=== PATIENT | female | born 1970 | race Caucasian/White ===

== ENCOUNTER 2018-08-22 10:47 | Observation (INO) ==
[~2018-08-22 10:47] MED LIST: LIDOCAINE W/ SODIUM BICARB 0.5 ML SYR ONE; LIDOCAINE W/ SODIUM BICARB 0.5 ML SYR SUBD ONE; Lactated Ringers 1,000 ML PRIMARY IV ONE; Nasal Sanitizer POPSWAB ampule 3 AMP (Nozin) PREOP DOSE ENOS SCH; Sodium Chloride 0.9% 250 ML ONE; Vancomycin Inj 1gm vial ONE; ceFAZolin Inj 2gm (Premix) 2 GM/50 ML BAG IV ONE
[2018-08-22 11:46] LABS: URINE SPECIFIC GRAVITY - MAN 1.045
[2018-08-22] MEDS ORDERED: HYDROmorphone 2 MG/1 ML ONE ×2 (13:30→16:48)
[2018-08-22] MEDS: HYDROmorphone 2 MG/1 ML IVP PRN ×2 (13:34→13:51)
[2018-08-22] MEDS ORDERED: ONDANSETRON 4 MG/2 ML VIAL IVP ONE (13:34)
[2018-08-22] MEDS ORDERED: REMIFENTANIL HCL 2 MG VIAL IV ONE (13:36)
[2018-08-22] MEDS ORDERED: fentaNYL Inj 100 MCG/2 ML VIAL ONE (13:37)
[2018-08-22] MEDS ORDERED: MIDAZOLAM HCL 2 MG/2 ML VIAL ONE (13:37)
[2018-08-22] MEDS ORDERED: Propofol 1,000 MG/100 ML VIAL IV ONE ×2 (13:37→16:25)
[2018-08-22] MEDS ORDERED: ONDANSETRON 4 MG/2 ML VIAL ONE ×3 (13:44→18:33)
[2018-08-22] MEDS ORDERED: Sodium Chloride 0.9% vial 10 ML ONE ×4 (14:28→19:37)
[2018-08-22] MEDS ORDERED: BACITRACIN 50,000 UNIT VIAL IRRIG ONE ×3 (14:29→17:27)
[2018-08-22] MEDS ORDERED: BUPIVACAINE 0.25% W/ EPI - 10 ML VIAL ONE ×2 (14:36→15:11)
[2018-08-22] MEDS ORDERED: KETAMINE HCL 100 MG/2 ML SYRINGE IV ONE (15:20)
[2018-08-22] MEDS ORDERED: Lactated Ringers 1,000 ML PRIMARY IV ONE (15:42)
[2018-08-22] MEDS ORDERED: REMIFENTANIL 1 MG/1 ML IV ONE (16:57)
[2018-08-22] MEDS ORDERED: BUPivacaine Liposome/PF (Exparel) Inj 20ml vial INFIL ONE (17:12)
[2018-08-22] MEDS ORDERED: BUPivacaine Inj 0.25% PF - 10ml vial ONE (17:14)
[2018-08-22] MEDS ORDERED: PROPOFOL 10 MG/1 ML (200 MG/20 ML) VIAL IV ONE (18:06)
[2018-08-22] MEDS ORDERED: KETOROLAC 30 MG/1 ML VIAL ONE (18:14)
[2018-08-22] MEDS ORDERED: NALOXONE 0.4 MG/1 ML VIAL ONE ×2 (18:28→19:37)
[2018-08-22] MEDS ORDERED: PROMETHAZINE 25 MG/1 ML VIAL IM ONE (18:42)
[2018-08-22] MEDS ORDERED: HYDROmorphone 2 MG/1 ML IVP PRN ×2 (18:52→20:18)
[2018-08-22] MEDS ORDERED: LIDOCAINE W/ SODIUM BICARB 0.5 ML SYR SUBD PRN (18:52)
[2018-08-22] MEDS ORDERED: PROMETHAZINE 25 MG/1 ML VIAL IM PRN ×2 (18:52→20:18)
[2018-08-22] MEDS ORDERED: fentaNYL Inj 100 MCG/2 ML VIAL IVP PRN (18:52)
--- NOTE | 2018-08-22 18:54 | CRNA.PROGR ---
Anesthesia Recovery Phase I - Post Anesthesia Evaluation Patient's Condition on Arrival in Phase I: Stable Pain Level: 0
--- NOTE | 2018-08-22 18:54 | CRNA.PROGR ---
Anesthesia Time - Procedure/Recovery Time Start Date: 08/22/18 End Date: 08/22/18 Anesthesia : Time In: 14:48 Anesthesia : Time Out: 18:35 Anesthesia : Total Time: 227 - Total Anesthesia Time Total Anesthesia Time (minutes): 227 - Other Weight: 95.254 kg Height: 5 ft 3 in Body Mass Index (BMI): 37.2 Physical Status: P2 Anesthesia Type: General Anesthesia : ET
[2018-08-22] MEDS ORDERED: Lactated Ringers 1,000 ML PRIMARY IV SCH (19:00)
--- NOTE | 2018-08-22 19:47 | GEN.OPNOTE ---
Operative Note Surgery Date: 08/22/18 Preoperative Diagnosis: 1. Chronic neck pain. 2. Intrascapular/mid back pain. 3. Status post remote work related injury and subsequent multiple anterior and posterior cervical fusion and hardware removal procedures. 4. Positive response to a cervical/scapular region peripheral stimulator trial. Postoperative Diagnosis: 1. Chronic neck pain. 2. Intrascapular/mid back pain. 3. Status post remote work related injury and subsequent multiple anteri or and posterior cervical fusion and hardware removal procedures. 4. Positive response to a cervical/scapular region peripheral stimulator trial. Procedure: 1.) Implantation of two Abbot/ St. Jass Octrode neurostimulator electrode arrays bilaterally; neuromuscular (right scapular region and right upper mid back region stimulator electrodes and left scapular region and left upper mid back region electrode arrays). (CPT code: 67257-44). 2.) Inplantation/insertion of two Werner/St. Jass Proclaim 7 Elite impulse generatery/battery units in the buttocks (right and left). (CPT code: 28810- 50) Surgeon: Zan Salcedo MD Attendant Campground: MISTY Szymanski Anesthesia Provider: Neil Mills CRNA Anesthesia Type: General Estimated Blood Loss (mL): 20 Fluids: See anesthesia record Pathology: None Indications: Ms. Torres is a 48 year old female status post a work related injury and status post multiple anterior cervical discectomy and fusion procedures and extensive posterior cervical thoracic instrumented fusion with subsequent removal of her cervical thoracic hardware. She has had persistent chronic neck pain and intrascapular pain for many years. More recently she has had mid back pain. She underwent a successful subcutaneous peripheral cervical/intrascapular/scapular stimulator trial. She wished to proceed with placement a permanent peripheral stimulator system and presents for that procedure today. Findings: None Complications: None Operative Summary: Ms. Torres was brought back to the Operating Room Suite. Her surgical history and physical in her chart was reviewed. The procedure to be performed was confirmed with Ms. Torres and we were in agreement on the procedure to be performed and this match was written on the patients consent form. Any questions that Ms. Torres had or family or friends with her had were answered before she was taken back to the Operating Room Suite. Ms. Torres was brought back to the Operating Room Suite and put under general anesthesia and intubated the anesthesia staff. She had a Patton catheter placed in her bladder for the procedure. She had pneumatic compression hose placed on her lower legs bilaterally. She was carefully rolled over onto the Paco surgical table with her arms gently positioned upwards with her shoulders abducted less than 90 degrees. Her arms were well padded, well-formed padding on top of the padding with surgical arm boards. The region of her chest and axilla was checked bilaterally to make sure that there were no pressure points over the region of the brachial plexus. Her breasts were checked to be below the chest pad of the Paco table with no pressure points over the nipples. All bony prominences were well padded. Her Patton catheter as checked to be free from kinks. Pneumatic compression hose was attached to pneumatic compression device. The intended incisions were demarcated for the insertion of the peripheral stimulator electrode arrays in the scapular and mid-back region and the intended IPG/battery sites in the bilateral buttocks were demarcated with a skin marker as well. Ms. Torres was prepped and draped in the usual and standard fashion. She was given 2 grams of Ancef and 1 gram of vancomycin IV for perioperative antibiosis. All intended skin incisions were injected with -percent Marcaine with 1:200,000 epinephrine. The interscapular incisions were opened with a 10-blade scalpel with all dermal and superficial bleeding points coagulated with bipolar cautery. The Tuohy needles for placement of this stimulator electrodes were then bent into a slight curvature and they were placed directed laterally into the subcutaneous tissue trying to keep the leads just below the level of the dermis. Once all four Tuohy needles were in place, the Werner/St. Jass Octorode stimulator lead electrode arrays were placed through the Tuohy needles just past the distal end of each needle, which was determinable by change in the resistance of the passage of the needle and by feeling the lead come out of the end of the Tuohy needle underneath the skin. The leads were placed such that the upper leads were somewhat higher than her trial leads had been placed as desired and then the lower leads were placed such to cover her upper mid-back pain. AP fluoroscopic images were obtained demonstrating the position of all four of the peripheral lead electrode arrays.. The Tuohy needles were then all withdrawn with care not to move the peripheral neuromuscular electrode arrays. Repeat AP fluoroscopic images demonstrated that the position of the electrode arrays had not moved. The leads were then all connected to a device connecting them to an external battery such that they could be interrogated and all individual electrodes of the lead electrode arrays demonstrated to have the proper impedance. The anchors were then advanced over each of the leads with care not to move the leads and then the anchors were secured to the deeper subcutaneous tissue and then collected and locked into position securing the leads. The leads were then examined again with AP fluoroscopic imaging again demonstrating that they had not moved. The bilateral buttocks incisions were then opened with a 10-blade scalpel, with the dermal and superficial bleeding points being controlled with bipolar cautery. The pockets were then made mostly caudal but also slightly rostral to the incisions in both a blunt and sharp fashion. The depth of the stimulator pockets was made at approximately 1 cm. The appropriate size of the battery pockets was confirmed with a trial battery. The battery sites were then copiously irrigated with bacitracin irrigation. The subcutaneous tunneler was then passed bilaterally creating two subcutaneous tracts from the thoracic incisions on each side where the leads have been placed down to the impulse gen erator/battery pockets. The leads were then passed through the subcutaneous channel to the battery pockets and then the leads were then placed into the impulse generator/battery devices and interrogated again. The leads were then secured within the impulse generator/battery devices with a small special screwdriver with a gentle tug in each lead assuring that the leads were snugly attached in each device. A small stress-relieving loop was made in the upper part of the leads and placed into the thoracic dissection sites with some of the subcutaneous tissue at these sites had been previously dissected to allow for the placement of a stress- relieving loop and this was done prior to the placement of the Tuohy needles of the subcutaneous tissue. The stress-relieving loops were placed into the thoracic incisions. The thoracic incisions were copiously irrigated with bacitracin irrigation. Both incisions were then closed in layers with Vicryl suture. The deep subcutaneous tissue was closed with 2-0 Vicryl suture in an interrupted fashion. The dermis superficial subcutaneous tissue was re- approximated with 3-0 Vicryl suture in an interrupted fashion. The incisions were then covered with sterile gauze. The impulse generator/battery sites were copiously irrigated with bacitracin irrigation. The IPG/battery devices themselves and the leads extending from the subcutaneous tissue channels were irrigated with bacitracin irrigation. The two separate stimulator systems were both interrogated again to make sure that the impulse generators were functioning properly and all connections to the leads had the proper impedance, which was confirmed. The IPG/battery devices were then placed into the IPG/battery pockets bilaterally. The pockets were irrigated again with bacitracin irrigation with the batteries in place. The IPG/battery devices were secured to the deep subcutaneous tissue with two 0-silk suture each. The IPG/battery sites were again irrigated with bacitracin i rrigation. The battery sites were then closed in layers with Vicryl suture. The deep subcutaneous tissue was closed with 2-0 Vicryl suture in an interrupted fashion. The dermis and superficial subcutaneous tissue was re-approximated with 3-0 Vicryl suture in an inverted interrupted fashion. The Ioban drape were pulled back from all four incisions, the two thoracic incisions and the two IPG/battery incisions in the buttocks bilaterally and the final layer of closure of each incision was performed with stainless steel rodney. The incisions were all cleansed with a bacitracin sponge and a sterile dry sponge. The incisions were then all dressed with Covaderm dressings. All surgical drapes were removed from Ms. Torres. She was carefully rolled over onto the PACU stretcher. She was awoken and extubated by the anesthesia staff. She was taken to the Recovery Room in stable condition. All surgical counts were reported as correct by the scrub and circulating personnel. A Physicians Attendant Camp[employer] Kathe Thomason PA-C assisted with the procedure, including the exposure and closure portions of the procedure. She also provided irrigation and suctioning throughout the procedure.
--- NOTE | 2018-08-22 20:00 | NEURO.PROG ---
Subjective Post Op Day: 0 Pain Management: IV Patton Catheter: Yes Additional Details: Sleepy in recovery; waking up. Will respond to voice and follow simple commands. Initially not moving right arm or right leg much, but starting to more as she slowly wakes up (week on the right pre-operatively). Will squeeze hands and wiggly feet bilaterally more so on the left but still not moving anything vigorously. PLAN: 1.) Transfer to med/surg floor. 2.) Continue post-operative antibiotics. 3.) Continue post-operative pain control. 4.) Advance diet. 5.) Mobilize. Objective : Data - Vital Signs Vital Signs and I&O: Vital Signs - Last Taken Temperature 97 F 08/22/18 19:45 Pulse Rate 107 H 08/22/18 19:45 Respiratory Rate 16 08/22/18 19:45 Blood Pressure 134/71 08/22/18 19:45 Pulse Ox 100 08/22/18 19:45 Intake and Output (24hr x 4 totals) 08/20/18 08/21/18 08/22/18 08/23/18 05:59 05:59 05:59 05:59 Intake Total 1500 / 1500 Output Total Balance 1485 / 1485
[2018-08-22] MEDS ORDERED: Prochlorperazine Edisylate Inj 10mg/2ml vial IVP PRN (20:18)
[2018-08-22] MEDS ORDERED: DIAZEPAM 5 MG TABLET PO PRN (20:18)
[2018-08-22] MEDS ORDERED: HYDROmorphone 2 MG TABLET PO PRN (20:18)
[2018-08-22] MEDS ORDERED: DIAZEPAM 10 MG/2 ML (5 MG/1 ML) CARPUJECT IVP PRN (20:18)
[2018-08-22] MEDS ORDERED: ONDANSETRON 4 MG/2 ML VIAL IVP PRN (20:18)
[2018-08-22] MEDS ORDERED: BISACODYL 5 MG TABLET PO PRN (20:18)
[2018-08-22] MEDS ORDERED: Ondansetron ODT Tab 4 MG TAB PO PRN (20:18)
[2018-08-22] MEDS ORDERED: CAFFEINE PO PRN (20:26)
[2018-08-22] MEDS ORDERED: ACETAMINOPHEN PO PRN (20:26)
[2018-08-22] MEDS ORDERED: BUTALB PO PRN (20:26)
[2018-08-22] MEDS ORDERED: Vancomycin-PHA to Dose IV ONE (20:30)
--- NOTE | 2018-08-22 21:52 | PDOC ---
HPI - History of Present Illness Date of Service: 08/22/18 Time of Service: 21:47 Chief Complaint: Right arm weakness History of Present Illness: This is a 48-year-old female with chronic neck pain status post a work-related injury with multiple anterior and posterior cervical procedures who responded to a stimulator test for cervical and mid back pain. She was here for a spine stimulator placement, and postoperatively she has had some sedation and difficulty moving her right arm and right leg. She was able to move her right arm against gravity for me. She follows some basic commands, does not have facial droop, and her pupils are reactive, but she is quite sedated. She reacts to sternal rub. She can move her right leg and can push down with plantar flexion with near equal strength on both right and left lower extremity. She's never had a stroke that I'm aware of. She has hypothyroidism as her underlying medical issue. Friend accompanying her states that she has been with the patient on multiple surgeries in the past and she's never seen the patient quite like this. She did state that the patient had right arm weakness prior to surgery as well. Past Medical History Medical History: 1. Hypothyroidism. 2. Chronic neck pain. 3. GERD. 4. Hypertension, though not on any antihypertensive medications at this time Surgical History: 1. Multiple cervical procedures Pertinent Family History: I cannot obtain this due to the patient's postoperative sedation. On my review of the medical record, the patient's mother is due to cancer Past Social History: Does not smoke. Lives in [place], [place]. Has 2 children. Does not drink alcohol. Tobacco Use: Never Smoker In the Past 12 Months, Have Used or Abuse Any of the Following Substance: None Alcohol Use: None Medication / Allergies Home Medications: Home Medications Medication Instructions Recorded Confirmed Levothyroxine Sodium [Synthroid] 75 mcg PO DAILY 10/24/10 08/22/18 duloxetine 60 mg capsule,delayed 60 mg PO QDAY #60 cap 05/30/18 08/22/18 release oqeugzhmxg-gdgysvdecbmmj-zwtmyshg 1 cap PO Q4-6H PRN #60 cap 07/01/18 08/19/18 50 mg-325 mg-40 mg capsule Dapagliflozin Propanediol [Farxiga] 10 mg PO QAM 08/08/18 08/22/18 Metformin HCl 1,000 mg PO BID 08/08/18 08/22/18 Diazepam [Valium] 2 mg PO BID 08/19/18 08/19/18 Allergies/Adverse Reactions: Allergies Allergy/AdvReac Type Severity Reaction Status Date / Time acetaminophen [From Percocet] Allergy Severe HIVES Verified 07/27/18 08:49 oxycodone HCl [From Percocet] Allergy Severe HIVES Verified 07/27/18 08:49 tramadol Allergy Mild Other : Verified 08/19/18 09:52 See Comment morphine Allergy Hives Verified 08/19/18 09:52 Review of Systems - Review of Systems ROS Unobtainable: Due to Mental Status (Due to patient's somewhat sedated state postoperatively, it's very difficult to get a review systems.) Exam - Vitals Vital Signs: Vital Signs Temperature 96.8 F Temperature Source Temporal Artery Scan Pulse Rate [Pulse Oximeter] 106 Pulse Rate 107 Respiratory Rate 16 Blood Pressure [Right Arm] 99/81 Blood Pressure 134/71 Pulse Ox 95 Oxygen Flow Rate 2 Oxygen Delivery Method Nasal Cannula Height 5 ft 3 in Weight 210 lb - General General Appearance: No Acute Distress, Obese - Head Head Exam: Normal Inspection, Normocephalic, Atraumatic - Eye Eye Exam: POSITIVE: No Scleral Icterus Additional Eye Exam Details: Pupils are dilated bilaterally responsive to light - ENT ENT Exam: POSITIVE: Mucous Membranes Moist - Neck Neck Exam: No Tenderness, No Lymphadenopathy, No Thyromegaly, JVP is not Raised Additional Neck Exam Details: Scars from prior surgery noted - Respiratory Respiratory Exam: POSITIVE: Clear to Auscultation - Bilaterally, Breathing Non Labored - Cardiovascular Cardiovascular Exam: POSITIVE: RRR, No Murmur, No Clicks, No Gallops, No Rubs, No JVD - GI/Abdominal GI/Abdominal Exam: POSITIVE: Normal Bowel Sounds, Non Tender, Non Distended, Soft - Rectal Rectal Exam: POSITIVE: Deferred - External Exam: POSITIVE: Deferred Exam: POSITIVE: Deferred - Extremities Extremities Exam: POSITIVE: No Clubbing Present, No Edema Present, No Cyanosis Present - Neurological Neurological Exam: POSITIVE: No Facial Droop Additional Neurological Exam Details: She can plantar flex bilaterally and equally. Right upper extremity can move against gravity and she picked her arm up spontaneously during the exam. Sedated postoperatively, responsive to sternal rub and verbal stimuli, can follow some basic commands but very somnolent and falls back asleep during exam frequently making it difficult to get a good neurologic exam. Results - Labs CBC and BMP: 08/22/18 21:16 Assessment and Plan - Patient Problems (1) Right arm weakness Current Visit: Yes Status: Acute Code(s): R29.898 - Other symptoms and signs involving the musculoskeletal system (2) Hypothyroidism Current Visit: Yes Status: Acute Code(s): E03.9 - Hypothyroidism, unspecified Qualifiers: Hypothyroidism type: unspecified Qualified Code(s): E03.9 - Hypothyroidism, unspecified (3) Hypertension Current Visit: Yes Status: Acute Code(s): I10 - Essential (primary) hypertension Qualifiers: Hypertension type: essential hypertension Qualified Code(s): I10 - Essential (primary) hypertension (4) Chronic neck pain Current Visit: Yes Status: Acute Code(s): M54.2 - Cervicalgia; G89.29 - Other chronic pain (5) Status post insertion of spinal cord stimulator Current Visit: Yes Status: Acute Code(s): Z98.890 - Other specified postprocedural states - Assessment / Plan Additional Assessment/Plan Details: At this point, it's very difficult to assess true nature of this right arm weakness. There is been expressed concern from both the nurse, and the patient's friend, and I think at this point we should go ahead and just get a CT scan of the head. I will order that. I like to see as the patient comes out of anesthesia little bit more of her exam changes as well. Low threshold for doing MRI scan of brain to look for potential stroke although I do not think with the patient raising her right arm spontaneously that there is a stroke that has occurred here in the setting of a spinal stimulator being placed. Labs in a.m. Antibiotics, DVT prophylaxis, and PT and OT as per neurosurgery. My understanding overall is a patient, if returned back to her baseline, could potentially discharged tomorrow in my discussion with Dr. Salcedo, and Kathe Thomason PA-C
[2018-08-22] MEDS: ceFAZolin Inj 1 GM in Sodium Chloride 0.9% 100 ML IV SCH (22:25)
--- NOTE | 2018-08-22 22:26 | DI ---
EXAM: CT Head Without Intravenous Contrast CLINICAL HISTORY: ITS.REASON right arm weakness Physician Notes: Tech Comments: TECHNIQUE: Axial computed tomography images of the head/brain without intravenous contrast. COMPARISON: No relevant prior studies available. FINDINGS: Brain: No hemorrhage. No edema. Ventricles: Unremarkable. No ventriculomegaly. Bones/joints: No acute fracture. Soft tissues: Unremarkable. Sinuses: No fluid levels. Mastoid air cells: Unremarkable as visualized. No mastoid effusion. IMPRESSION: No acute intracranial findings
[2018-08-22] MEDS: DIAZEPAM 2 MG TABLET PO SCH (22:39)
[2018-08-22] MEDS: metFORMIN 500 MG TABLET PO SCH (22:39)
[2018-08-22] MEDS: DULOXETINE 60 MG CAPSULE PO SCH (22:40)
[2018-08-23 04:24] LABS: BASOPHILS # (AUTO) 0.02 10*3/UL; BASOPHILS % (AUTO) 0.3 % (0-1); EOSINOPHILS # (AUTO) 0.23 10*3/UL; EOSINOPHILS % (AUTO) 2.9 % (0-8); Hematocrit [HCT] 39.7 % (37.0-47.0); Hemoglobin [HGB] 12.6 g/dL (12.0-16.0); LYMPHOCYTES # (AUTO) 1.28 10*3/uL; MEAN CORPUSCULAR HEMOGLOBIN 27.7 PG (27-31); MEAN CORPUSCULAR HGB CONC 31.7 g/dL (33-37); MEAN CORPUSCULAR VOLUME 87.3 FL (81-99); MEAN PLATELET VOLUME 8.9 FL (7.4-12.2); MONOCYTES # (AUTO) 0.39 10*3/UL (0.3-0.8); MONOCYTES % (AUTO) 4.9 % (5-15); NEUTROPHILS # (AUTO) 5.95 10*3/UL; NEUTROPHILS % (AUTO) 75.4 % (50-80); RED BLOOD COUNT 4.55 10^6/uL (4.20-5.40)
[2018-08-23 04:26] LABS: PLATELET MORPHOLOGY COMMENT NORMAL MORPHOLOGY (NORM); RBC MORPHOLOGY COMMENT NORMAL MORPHOLOGY (NORM); WBC MORPHOLOGY COMMENT NORMAL MORPHOLOGY (NORM)
[2018-08-23 04:35] LABS: BLOOD UREA NITROGEN 12 mg/dL (7-22)
[2018-08-23] MEDS ORDERED: LEVOTHYROXINE 75 MCG TABLET PO SCH (05:30)
--- NOTE | 2018-08-23 06:46 | NEURO.PROG ---
Subjective Post Op Day: 1 Pain Management: PO Patton Catheter: No Diet: Regular Ambulating: Yes Additional Details: On rounds this morning with Dr. Salcedo Aleja is awake, alert and moving all extremities. She is afebrile and VSS She says she is ready to be discharged. She was given post operative instructions, including incision care, and was told to notify Dr. Salcedo's office with any problems immediately. She was given a post op appointment in Dr. Salcedo's office in [place] on 09/06 at 11:00. She will also follow up with the [facility] for getting her stimulator turned on. Plan: Discharge home today. Objective : Data - Labs CBC and BMP: 08/23/18 04:11 08/23/18 04:11 - Vital Signs Vital Signs and I&O: Vital Signs - Last Taken Temperature 97.5 F 08/23/18 04:54 Pulse Rate 79 08/23/18 04:54 Respiratory Rate 16 08/23/18 04:54 Blood Pressure 116/59 08/23/18 04:54 Pulse Ox 96 08/23/18 05:06 Intake and Output (24hr x 4 totals) 08/21/18 08/22/18 08/23/18 08/24/18 05:59 05:59 05:59 05:59 Intake Total 2790 / 2790 Output Total 665 / 665 Balance 2124 / 2124
[2018-08-23 06:49] VITALS: BP 124/60; RESP 12; TEMP 97.1; O2SAT 91
[2018-08-23] MEDS ORDERED: PANTOPRAZOLE 40 MG TABLET PO SCH (07:00)
[2018-08-23] MEDS: ceFAZolin Inj 1 GM in Sodium Chloride 0.9% 100 ML IV SCH (07:16)
[2018-08-23] MEDS: metFORMIN 500 MG TABLET PO SCH (07:17)
[2018-08-23] MEDS ORDERED: diphenhydrAMINE 25 MG CAPSULE PO ONE (07:29)
[2018-08-23] MEDS ORDERED: DAPAGLIFLOZIN PROPANEDIOL 10 MG PO SCH (09:00)
[2018-08-23] MEDS: DULOXETINE 60 MG CAPSULE PO SCH (09:35)
[2018-08-23] MEDS: DIAZEPAM 2 MG TABLET PO SCH (09:35)
--- NOTE | 2018-08-23 10:04 | DCSUMMARY ---
Hospitalization Summary Admit Date: 08/22/2018 Discharge Date: 08/23/18 Primary Diagnosis:: status post spinal nerve stimulator placement Hospital Course: This very pleasant 48-year-old female who has had chronic neck pain for some time. She was admitted on 08/22/2018 for spinal nerve stimulator placement done by Dr. Salcedo. See his surgical notes regarding the procedure. Postoperatively, the patient had some difficulty moving the right upper extremity and lower extremity. This improved and resolved by morning time and is presumably related to anesthetics and pain medications. CT scan of the head was done and was negative for any acute bleed or stroke. Patient is back to her normal baseline, and the neurosurgery team has cleared the patient for discharge and from the hospitalist perspective, her medical problems are at her baseline and she may go home. She denies any chest pain or shortness breath. She does complain of a headache. She was ambulatory prior to discharge. Assessment and Plan: 1. As per discharge assessments noted 2. Disposition: Agent is discharged home. 3. Condition on discharge, stable and improved. 4. Diet: regular diet 5. Activities: resume normal activities 6. Follow-Up: 1. Primary care provider and Dr. Salcedo as requested 2. 7. Medications at the Time of Discharge: Home Medications Medication Instructions Recorded Confirmed Levothyroxine Sodium [Synthroid] 75 mcg PO DAILY 10/24/10 08/22/18 woggjnozkg-ywpbhnwulqods-jvzjroee 1 cap PO Q4-6H PRN #60 cap 07/01/18 08/19/18 50 mg-325 mg-40 mg capsule Dapagliflozin Propanediol [Farxiga] 10 mg PO QAM 08/08/18 08/22/18 Metformin HCl 1,000 mg PO BID 08/08/18 08/22/18 Diazepam [Valium] 2 mg PO BID 08/19/18 08/19/18 Duloxetine HCl [Cymbalta] 60 mg PO QDAY #60 cap 08/23/18 HYDROmorphone Tab [Dilaudid Tab] 2 mg PO Q6H PRN #60 tab 08/23/18 Exam - Vitals Vital Signs: Vital Signs Temperature 97.1 F Temperature Source Temporal Artery Scan Pulse Rate [Pulse Oximeter] 84 Pulse Rate 107 Respiratory Rate 12 Blood Pressure [Right Arm] 124/60 Blood Pressure 134/71 Pulse Ox 91 Oxygen Flow Rate 1 Oxygen Delivery Method Nasal Cannula Height 5 ft 3 in Weight 210 lb - General General Appearance: No Acute Distress, Cooperative - Eye Eye Exam: POSITIVE: No Scleral Icterus - ENT ENT Exam: POSITIVE: Mucous Membranes Moist - Neck Neck Exam: JVP is not Raised - Respiratory Respiratory Exam: POSITIVE: Clear to Auscultation - Bilaterally, Breathing Non Labored - Cardiovascular Cardiovascular Exam: POSITIVE: RRR, No Murmur, No Clicks, No Gallops, No Rubs, No JVD - GI/Abdominal GI/Abdominal Exam: POSITIVE: Normal Bowel Sounds, Non Tender, Non Distended, Soft - Extremities Extremities Exam: POSITIVE: No Clubbing Present, No Edema Present, No Cyanosis Present - Neurological Neurological Exam: POSITIVE: Alert, Oriented x 3, No Facial Droop, Speech Intact / Clear, Moves All Extremities Equally Data Peritnent Studies: [address] [facility] [place] [id number] PH: DD: [phone] FAX: [phone] ~DIAGNOSTIC IMAGING REPORT~ Patient: Susanna Torres : 1970 Sex: F Age: 48 Exam Name: CT Head WO Contrast Exam Date: 08/22/18 Report # : [id number] CPT Code: 57061 EMR/MR #: [id number] Ordering: ANTONIO PHAN Admiting: Dr. Zan Salcedo MD. Primary: NONE,NONE Attending: Dr. Zan Salcedo MD. Signed EXAM: CT Head Without Intravenous Contrast CLINICAL HISTORY: ITS.REASON right arm weakness Physician Notes: Tech Comments: TECHNIQUE: Axial computed tomography images of the head/brain without intravenous contrast. COMPARISON: No relevant prior studies available. FINDINGS: Brain: No hemorrhage. No edema. Ventricles: Unremarkable. No ventriculomegaly. Bones/joints: No acute fracture. Soft tissues: Unremarkable. Sinuses: No fluid levels. Mastoid air cells: Unremarkable as visualized. No mastoid effusion. IMPRESSION: No acute intracranial findings Dictated By: Alberto Crawford MD Signed By: 08/22/18 2226 Alberto Crawford MD Patient Problems - Patient Problem List (1) Status post insertion of spinal cord stimulator Current Visit: No Status: Acute Code(s): Z98.890 - Other specified postprocedural states Category: Surgical (2) Hypothyroidism Current Visit: No Status: Acute Code(s): E03.9 - Hypothyroidism, unspecified Qualifiers: Hypothyroidism type: unspecified Qualified Code(s): E03.9 - Hypothyroidism, unspecified Category: Medical (3) Hypertension Current Visit: No Status: Acute Code(s): I10 - Essential (primary) hypertension Qualifiers: Hypertension type: essential hypertension Qualified Code(s): I10 - Essential (primary) hypertension Category: Medical (4) Chronic neck pain Current Visit: No Status: Acute Code(s): M54.2 - Cervicalgia; G89.29 - Other chronic pain Category: Medical (5) Right arm weakness Current Visit: Yes Status: Resolved Code(s): R29.898 - Other symptoms and signs involving the musculoskeletal system Category: Medical
[2018-08-24] MEDS ORDERED: BISACODYL 5 MG TABLET PO PRN (06:00)
[2018-08-24] MEDS ORDERED: Fleet Enema 133ml RECTAL PRN (06:00)
[2018-08-24] MEDS ORDERED: DOCUSATE 100 MG CAPSULE PO PRN (06:00)
[2018-08-24] MEDS ORDERED: MAGNESIUM 400 MG/5 ML - 30 ML (MILK OF MAGNESIA) PO PRN (06:00)
[2018-08-24] MEDS ORDERED: MAGNESIUM CITRATE 296 ML SOLUTION PO PRN (06:00)
--- NOTE | 2018-08-24 12:33 | PTI REPORT ---
Thank you for the referral of Susanna Torres. She was seen on 08/23/18 for an inpatient evaluation status post spinal stimulator surgery. SUBJECTIVE: The patient is a 48-year-old female that underwent spinal cord stimulator surgery on 08/22/18. The patient states that she is feeling alright and is willing to get up and move around. The patient lives in [place], [place] with her children and has a supportive neighbor that is able to help her out. The patient states that she has five stairs to enter her house with bilateral railings on both sides. She did not use an assistive device before this and would like to continue to not use an assistive device. The patient has had four neck surgeries. PAST MEDICAL HISTORY: Past medical history can be found in the patient's medical record. OBJECTIVE FINDINGS: Bed mobility: The patient is able to transfer from supine to sit independently. Transfers: The patient is able to transfer from sit to stand independently with contact guard assist. Ambulation: Upon standing, a gait belt was placed around the patient, her IV was gathered, and the patient ambulated 150 feet with contact guard assist. The patient was able to maintain good standing and walking balance. ASSESSMENT: The patient has a good prognosis for therapy. Problem List: Patient is status post spinal cord stimulator surgery Short-Term Goals: To be met by discharge from inpatient: Patient will be able to transfer from bed to stand independently and safely and gain appropriate standing balance. Patient will be able to ambulate 150 feet independently in order to return home. Patient will be able to ascend and descend 5 stairs with bilateral hand railings in order to return home. Long-Term Goals: To be met following discharge from inpatient: Patient may be a good candidate for outpatient therapy depending on physician's orders. TREATMENT PLAN: Patient will be seen B.I.D during the week and one time per day over the weekend as an inpatient for transfer training, gait training, and stair training. INITIAL TREATMENT: Treatment today consisted of the initial evaluation activities only. Upon return to her room, the patient was placed back into a sitting position edge of bed with IV plugged back in. We were unable to do stairs secondary to the patient being hooked up to the IV. Dictated by: MITZI Batista Supervised by: MACIE Ramirez
--- NOTE | 2018-08-24 12:57 | OTI REPORT ---
Thank you for the referral of Susanna Torres. She was seen on 08/23/18 for an occupational therapy inpatient evaluation status post spinal stimulator surgery. SUBJECTIVE: The patient is a 48-year-old female who underwent a spinal stimulator surgery. The patient lives in [place]. She has been having a lot of pain in her neck. PAST MEDICAL HISTORY: Past medical history can be found in the patient's medical record. OBJECTIVE FINDINGS: Bed mobility: The patient was able to come from supine to sit independently but this did increase her pain quite significantly. Activities of daily living: While sitting edge of bed the patient had difficulty doffing her socks. She was issued a coat padder to do this. She was also instructed on how to don shorts with the coat padder which she was able to do. The patient stated that she only wears slip-ons during the summer and will probably not be wearing socks so we did not issue her a sock aide. The patient has a higher toilet and a shower chair at home. The patient was able to dress self with stand by assist with use of adaptive devices. ASSESSMENT: The patient would benefit from skilled occupational therapy for evaluation only. She was issued a coat padder and a bath sponge for increased independence at home. Overall her functional transfers are stand by assist. Her pain levels did increase with transferring from supine to sit. We went over more log rolling type techniques to help her do this. Short-Term Goals: To be met by discharge from inpatient: Patient will be able to dress self independently. Patient will be able to complete all functional transfers with stand by assist. Long-Term Goals: To be met following discharge from inpatient: Patient will be discharged to home, demonstrating modified independence with all ADLs and functional tasks. TREATMENT PLAN: Patient will be discharged from OT at this time. INITIAL TREATMENT: Treatment today consisted of the initial evaluation activities only. IRINEO
== END 2018-08-23 12:07 | disposition home or self-care (01) ==
LOC: OR 10:47 → MED/SURG 10:47
PROVIDERS: ADMIT Neurological Surgery; ATTEND Neurological Surgery